=== PATIENT | male | born 2005 | race Caucasian/White ===

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

== ENCOUNTER 2025-01-31 13:07 | Inpatient (IN) | payer BC ==
[~2025-01-31] VITALS: Ht 177.8 cm; Wt 59.0 kg
[2025-01-31 13:15] VITALS: BP 132/82
[2025-01-31] MEDS ORDERED: OLANZapine ODT 5 MG Tab MM ONE (13:50)
[2025-01-31] MEDS ORDERED: Ibuprofen 400 MG Tab PO ONE (13:50)
[2025-01-31 13:51] LABS: Ethanol (Alcohol), Blood, Med <3 mg/dL; Salicylate <1.7 mg/dL (2.8-20.0)
[2025-01-31 13:57] LABS: Acetaminophen, Random <2.0 ug/mL (10.0-30.0); Alanine Aminotransfer (ALT/SGP 29 U/L (12-78); Albumin, Blood 4.7 g/dL (3.4-5.0); Albumin/Globulin Ratio 1.6 (0.8-1.8); Alk Phos 76 U/L (58-237); Anion Gap 15 mmol/L (3-11); Aspartate Aminotrans (AST/SGOT 42 U/L (12-37); Blood Urea Nitrogen 10 mg/dL (8-21); Bun/Creatinine Ratio 9.9 (12.0-20.0); CO2, Blood 20 mmol/L (21-32); Calcium, Blood 9.6 mg/dL (8.5-10.1); Chloride, Blood 105 mmol/L (98-108); Creatinine, Blood 1.01 mg/dL (0.60-1.20); Globulin, Blood 2.9 g/dL (2.2-4.0); Glomerular Filtration Rate 110 (60-); Glucose, Blood 108 mg/dL (70-99); Potassium, Blood 3.8 mmol/L (3.5-5.5); Sodium, Blood 136 mmol/L (136-145); Total Protein, Blood 7.6 g/dL (6.4-8.2)
[2025-01-31 14:16] LABS: BASOPHILS ABSOLUTE AUTO 0.04 K/mm3 (0.00-0.23); BASOPHILS PERCENT AUTO 1 % (0-2); EOSINOPHILS ABSOLUTE AUTO 0.17 K/mm3 (0.00-0.68); EOSINOPHILS PERCENT AUTO 3 % (0-6); Hematocrit 40.5 % (37.0-53.0); Hemoglobin 15.1 g/dL (13.5-17.5); IMMATURE GRAN ABSOLUTE AUTO 0.01 K/mm3 (0.00-0.10); IMMATURE GRAN PERCENT AUTO 0 % (0-1); LYMPHOCYTES PERCENT AUTO 26 % (21-46); MONOCYTES ABSOLUTE AUTO 0.59 K/mm3 (0.16-1.47); MONOCYTES PERCENT AUTO 9 % (4-13); Mean Corpuscular HGB Conc 37.3 g/dL (31.5-36.5); Mean Corpuscular Volume 83 fL (80-100); Mean Platelet Volume 8.5 fL (9.1-12.4); NEUTROPHILS ABSOLUTE AUTO 4.23 K/mm3 (1.96-9.15); NEUTROPHILS PERCENT AUTO 62 % (41-73); Platelet Count 276 K/mm3 (150-400); RDW Coefficient Variation 13.1 % (11.7-14.2); RDW Standard Deviation 39.3 fL (35.1-46.3); Red Blood Cell Count 4.87 M/mm3 (4.30-5.90); White Blood Cell Count 6.84 K/mm3 (4.00-11.30)
[2025-01-31] MEDS ORDERED: GUANFACINE HCL E2 MG PO (15:16)
[2025-01-31] MEDS ORDERED: CATAPRES0.1 MG PO (15:21)
[2025-01-31] MEDS ORDERED: RISP3 PO (15:22)
[2025-01-31] MEDS ORDERED: ESCI10 PO (15:22)
[2025-01-31 15:31] LABS: Source, Urine Clean Catch
[2025-01-31 15:55] LABS: Appearance, Urine Clear (Clear); Bilirubin, Urine Neg (Neg); Blood, Urine Neg (Neg); Color, Urine Yellow (P-Yellow); Glucose Qualitative, Urine Neg (Neg); Ketones, Urine 2+ (Neg); Leukocyte Esterase, Urine Neg (Neg); Nitrite, Urine Neg (Neg); Protein, Urine Neg (Neg); Urobilinogen, Urine NORM (Normal)
[2025-01-31 16:06] LABS: U Amphetamine Screen Not Detected; U Barbituate Screen Not Detected; U Benzodiazapine Screen DETECTED; U Buprenorphine Screen Not Detected; U Cannabinoids Screen DETECTED; U Cocaine Screen Not Detected; U Methadone Screen Not Detected; U Methamphetamine Screen Not Detected; U Opiates Screen Not Detected; U Oxycodone Screen Not Detected; U Phencyclidine Screen Not Detected
== END 2025-01-31 20:15 | DRG 885 ==
LOC: ER 13:07 → EOR 15:50
PROVIDERS: ADMIT Student in an Organized Health Care Education/Training Program
DX: F20.0 Paranoid schizophrenia (principal); F31.9 Bipolar disorder, unspecified; F90.9 Attention-deficit hyperactivity disorder, unspecified type; F42.9 Obsessive-compulsive disorder, unspecified; F12.10 Cannabis abuse, uncomplicated; F10.90 Alcohol use, unspecified, uncomplicated; F13.10 Sedative, hypnotic or anxiolytic abuse, uncomplicated; Z79.1 Long term (current) use of non-steroidal anti-inflammatories (NSAID); Z91.148 Patient's other noncompliance with medication regimen for other reason
CPT/HCPCS: 36415; 80053; 80320; 81003; 85025; 93005; 93010; 99285-25; A9270; G0378; G0480

== ENCOUNTER 2025-01-31 15:37 | Inpatient (IN) | payer BC ==
[~2025-01-31] VITALS: Ht 180.3 cm; Wt 62.4 kg
[~2025-01-31 15:37] MED LIST: CATAPRES0.1 MG PO; ESCI10 PO; GUANFACINE HCL E2 MG PO; RISP3 PO
[2025-01-31] MEDS ORDERED: Acetaminophen 325 MG TABLET PO PRN (17:45)
[2025-01-31] MEDS ORDERED: Polyethylene Glycol 3350 17 gm PO PRN (17:45)
[2025-01-31] MEDS ORDERED: LORazepam 2 MG/ML 1ML Injection IM PRN (17:50)
[2025-01-31] MEDS ORDERED: Calcium Carbonate 500 MG Tab Chew PO PRN (17:50)
[2025-01-31] MEDS ORDERED: Aluminum Hydroxide 320MG/5ML 473 ML PO PRN (17:50)
[2025-01-31] MEDS ORDERED: Ibuprofen 600 MG Tab PO PRN (17:50)
[2025-01-31] MEDS ORDERED: Ondansetron 4 MG SoluTab MM PRN (17:55)
[2025-01-31] MEDS ORDERED: LORazepam 1 MG Tab PO SCH (20:00)
[2025-01-31 20:51] VITALS: BP 128/87
[2025-01-31] MEDS ORDERED: RisperiDONE 1 MG Tab PO SCH (21:00)
[2025-01-31 21:25] VITALS: BP 128/87
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
--- NOTE | 2025-02-01 04:25 | NUR ---
SHIFT SUMMARY: SEE PREVIOUS NOTE FOR ADMISSION SUMMARY. PATIENT STATED BEFORE HE WENT TO BED THAT HE DID NOT WANT TO BE AWAKENED FOR ATIVAN AT MIDNIGHT AND 0400. RN ASKED THREE SEPARATE TIMES TO ASCERTAIN THAT WAS WHAT HE ACTUALLY WANTED TO HAPPEN. STAFF SPOKE HIS NAME IN A SOFT TONE OF VOICE INTO HIS ROOM AT MIDNIGHT AND 0400 BUT HE DID NOT AWAKEN, SO MEDICATION WAS CHARTED NOT GIVEN. PATIENT HAS BEEN RESTING IN BED WITH EYES CLOSED AND RESPIRATIONS CONFIRMED THE REMAINDER OF THIS SHIFT. HE HAS NO S/SX SUICIDAL IDEATION OR SELF HARM WHILE SLEEPING. CONTINUING TO MONITOR FOR SAFETY WITH Q15 MINUTE CHECKS.
[2025-02-01 08:43] VITALS: BP 137/91
[2025-02-01] MEDS ORDERED: Multivitamins 1 Tab PO SCH (09:00)
[2025-02-01] MEDS ORDERED: LORazepam 1 MG Tab PO SCH (14:00)
[2025-02-01] MEDS ORDERED: Paliperidone Palmitate 234 MG/1.5 ML SYR IM ONE (17:00)
[2025-02-01] MEDS ORDERED: Nicotine Polacrilex 2 MG Gum PO PRN (17:05)
--- NOTE | 2025-02-01 17:54 | NUR ---
SHIFT SUMMARY PT A/O X4; AND COOPERATIVE WITH CARE. HIS AFFECT IS CHEERFUL AND HE REFERS TO HIMSELF IN THE THIRD PERSON. HE SAYS THAT HE DOES NOT WISH TO BE ALIVE BUT DOES NOT HAVE A PLAN OR INTENT TO KILL HIMSELF. HE REPORTS HALLUCINATIONS BUT BELIEVES THEY MAY RESOLVE WITH MEDICATIONS. HE IS COMPLIANT WITH MEDICATIONS AND HAS BEEN ACTIVE ON THE MILEU. HOWEVER, AT TIMES PT HAS VERBALIZED INAPPROPRIATE THINGS OF THE SEXUAL NATURE AND HAD TO BE TOLD TO STOP BY MHA. PT RECEIVED HIS FIRST INVEGA INJECTION THIS SHIFT AND HAS BEEN RECEIVING SCHEDULED Q4 LORAZEPAM. HE IS MONITORED VIA Q15 ROUNDING FOR SAFETY AND WELLNESS.
[2025-02-01 20:42] VITALS: BP 129/80
--- NOTE | 2025-02-02 04:14 | NUR ---
SHIFT SUMMARY PATIENT UP IN SENSORY ROOM WITH HEADPHONES IN PLACE BEFORE AND AFTER SNACK. DENIES SI, HI, AVH. NO LONGER SPEAKING IN THIRD PERSON. MULTIPLE SCARRED CUTS AND WAGNER TO BOTH ARMS, CUTS TO ABD AND LEGS. PATIENT VERBALIZED NO URGE TO HARM SELF AND AGREES TO ASK FOR HELP IF URGES RETURN. COOPERATIVE WITH MEDICATIONS. AFTER BEING GIVEN EARPLUGS PATIENT APPEARS TO BE SLEEPING WELL WITH RESP EVEN AND UNLABORED. CONTINUE Q15MIN MONITORING
[2025-02-02 08:10] VITALS: BP 124/96
--- NOTE | 2025-02-02 08:57 | NUR ---
PT ATTEMPTING TO ISOLATE SELF IN SENSORY ROOM WITH BLANKETS AND HEADPHONES. DOES NOT WANT TO BE IN ROOM BUT ALSO DOES NOT WANT TO PARTICIPATE IN GROUP ACTIVITIES. EDUCATED ON NEED TO ATTEND GROUP SESSIONS TO MEET GOALS FOR DISCHARGE. HE WAS AGREEABLE TO THIS. CURRENTLY SPEAKING IN 3RD PERSON. DENIES SI/HI/AH/VH.
[2025-02-02] MEDS ORDERED: LORazepam 1 MG Tab PO SCH ×2 (14:00→18:00)
[2025-02-02 14:45] VITALS: BP 117/87
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
--- NOTE | 2025-02-02 17:31 | NUR ---
SHIFT SUMMARY: SEE PREVIOUS NOTE REGARDING PSEUDO SEIZURE TYPE BEHAVIORS. CURRENTLY CALM, COOPERATIVE. REQUESTED NICOTINE GUM AND WOULD LIKE TO HAVE PATCH APPLIED TOMORROW. WHEN ASKED WHAT FORM OF TOBACCO HE NORMALLY USES HE STATED "VAPORIZED." PT ATE MEAL WITHOUT ISSUE. CURRENTLY IN ROOM RELAXING.
[2025-02-02 20:30] VITALS: BP 106/61
[2025-02-02] MEDS ORDERED: Melatonin 3 MG Tab PO SCH (21:00)
--- NOTE | 2025-02-03 06:12 | NUR ---
SHIFT SUMMARY Pt is A&O, calm, cooperative, eye contact is inermitent. Pt mood is depressed, "because I'm here," affect is flat. Pt denies current SI, HI, hallucinations, and pain. Pt continues to refer to himself in the third person. Pt remained in his room this entire shift and had to be awakened for assessment, VS, and meds. Staff continues to monitor q15m for safety and wellness.
[2025-02-03 08:14] VITALS: BP 126/82
[2025-02-03 09:27] LABS: LDL/HDL RATIO 1.1
[2025-02-03 09:28] LABS: CHOL/HDL RATIO 2.6; Cholesterol 111 mg/dL (50-200); HDL Cholesterol 43 mg/dL (>39); Low Density Lipoprotein Chol 47 mg/dL (0-110); Triglycerides 104 mg/dL (30-140); Very Low Density Lipoprot Chol 20 mg/dL (6-28)
[2025-02-03] MEDS ORDERED: Nicotine 21 MG PATCH TOP ONE (11:30)
--- NOTE | 2025-02-03 14:10 | NUR ---
PRIOR TO ADMINISTERING 1400 ATIVAN, PT LOWERED SELF TO HANDS AND KNEES ON FLOOR STATING HE WANTED AN EKG BECAUSE HIS HEART WAS "GOING TO EXPLODE." RADIAL PULSE STRONG, REGULAR RHYTHM, RATE OF 80. REASSURED PATIENT THAT HIS HEART WAS FUNCTIONING APPROPRIATELY. PT THEN STOOD UP AND WALKED TO NURSE'S STATION TO TAKE MEDICATION. WALKED BACK TO ROOM WITHOUT DIFFICULTY. PT HAD REMOVED NICOTINE PATCH ON OWN - HAD HIM RETRIEVE IT OUT OF THE GARBAGE. HE STATES "IT WAS TOO MUCH." THIS RN OBSERVED PATCH AND DISCARDED IT PROPERLY.
--- NOTE | 2025-02-03 16:59 | NUR ---
SHIFT SUMMARY: PT MORE COOPERATIVE TODAY WITH REQUESTS. ABLE TO BE REDIRECTED EASILY AND FOLLOWS COMMANDS. CONTINUES TO EXPRESS FRUSTRATION WITH BEING HERE BUT ALSO STATES HE UNDERSTANDS WHY IT IS IMPORTANT. C/O FEELING SEDATED BY MEDICATIONS BUT AGREES TO KEEP TAKING THEM. HAD ON INSTANCE OF ROCKING BACK AND FORTH ON HANDS/KNEES ON FLOOR. EASILY REDIRECTED TO GET UP AND WALK (SEE PREVIOUS NOTE). ATTEMPTED TO EXERCISE IN SENSORY ROOM APPROXIMATELY 30 MINUTES PRIOR TO PARENTS ARRIVING. DISCUSSED WITH HIM THAT EXERCISING STARTED HIS PANIC ATTACK (PER HIS STATEMENT) YESTERDAY AND RECOMMENDED HE NOT DO THIS. HE AGREES AND TRANSITIONED TO YOGA/STRETCHING. WHEN PARENTS ARRIVED PT FLUCTUATED BETWEEN ANGER/IRRITABILITY WITH PARENTS AND TELLING THEM HE LOVED THEM AND HUGGING THEM. PARENTS REMAINED CALM AND SPOKE SOFTLY AND CALMLY TO PATIENT. PATIENT TENDED TO OVERTALK HIS PARENTS AND NOT ENGAGE IN LISTENING TO THEM.
[2025-02-03 19:30] VITALS: BP 114/74
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
[2025-02-04 08:19] VITALS: BP 127/89
[2025-02-04] MEDS ORDERED: Nicotine 21 MG PATCH TOP SCH ×2 (09:00)
[2025-02-04] MEDS ORDERED: Nicotine 14 MG PATCH TOP ONE (09:35)
--- NOTE | 2025-02-04 17:36 | NUR ---
SHIFT SUMMARY PT A/O X4 AND COOPERATIVE WITH PLAN OF CARE. HE DENIES SI, HI, OR HALLUCINATIONS. PT SOMETIMES EXHIBITS HAND FLAPPING, ROCKING, AND SHUDDERING. PT PARTICIPATED IN ALL GROUPS AND MEALS THIS SHIFT. HE HAD AN EPISODE OF ANXIETY AND CONTINUES TO RECEIVE Q4 ATIVAN. PT ALSO ENCOURAGED TO USE COPING SKILLS. PT TO RECEIVE SECOND INVEGA INJECTION TOMORROW AND POSSIBLY DISCHARGE HOME TOMORROW.
[2025-02-04] MEDS ORDERED: Nicotine Polacrilex 2 MG Gum PO PRN (19:15)
[2025-02-04 19:51] VITALS: BP 134/85
--- NOTE | 2025-02-05 04:11 | NUR ---
SHIFT SUMMARY PT IN MILIEU AT START OF SHIFT. HE DENIES ANY SI, THOUGHTS OF SELF HARM OR HALLUCINATIONS. PT STATED HE WAS A LITTLE ANXIOUS, BUT EXCITED TO BE GOING HOME. PT WAS NOT TALKING IN THE THIRD PERSON DURING ASSESSMENT, NO TICS OBSERVED. PT WAS COMPLIANT WITH MEDICATIONS, HAD EVENING SNACK AND WENT TO BED SHORTLY AFTER. HE HAS BEEN SLEEPING THROUGHOUT THE NIGHT, WITH RESPIRATIONS CONFIRMED. Q15 MINUTE CHECKS TO CONTINUE PER UNIT PROTOCOL/PT SAFETY.
[2025-02-05] MEDS ORDERED: Nicotine 14 MG PATCH TOP SCH (09:00)
[2025-02-05] MEDS ORDERED: Paliperidone Palmitate 156 MG/ML SYR IM SCH (09:00)
--- NOTE | 2025-02-05 09:43 | NUR ---
IMPORTANT DISCHARGE INFORMATION PATIENT TO BE PICKED UP TODAY BY MOTHER AT 3PM. PHARMACY: [facility] PATIENT HAS FOLLOW UP APPOINTMENTS: PCP FOLLOW UP/JAMIN ON 02/09/25 AT 8:40AM. AT [facility] FOLLOW UP APPONTMRNT: 02/12/25 AT 1:30PM WITH THERAPIST DULCE LOPEZ MEDICATION REVIEW/DISEASE PROCESS REVIEW ON 02/16/25 AT 12:00 WITH LORENA MONTESINOS.
[2025-02-05] MEDS ORDERED: MELA3 PO (12:21)
[2025-02-05] MEDS ORDERED: Ativan1 MG PO (12:21)
[2025-02-05] MEDS ORDERED: MULVITA PO (12:21)
[2025-02-05] MEDS ORDERED: NICOTINE GUM2 M1 PO (12:22)
--- NOTE | 2025-02-05 15:13 | NUR ---
DISCHARGE NOTE PT STATES UNDERSTANDING OF D/C HOME WITH PARENTS. MEDICATIONS CALLED IN TO [facility] IN [place]. PT WAS ALSO GIVEN A HAND PRESCRIPTION OF ATIVAN 1 MG TO TAKE TO PHARMACY. D/C FORM SIGNED. ALL D/C INSTRUCTIONS AND RX GIVEN TO YANET WHO GAVE PT'S MOTHER ALL FORMS AND D/C PACKET WITH RX. MOTHER BROUGHT CLOTHES FOR PT TO CHANGE INTO. PT DRESSED SELF AND AMBULATED OUT OF FACILITY AND TRANSPORTED WITH HIS MOTHER.
[2025-02-06] MEDS ORDERED: Paliperidone Palmitate 156 MG/ML SYR IM ONE (09:00)
== END 2025-02-05 15:02 | disposition home or self-care (01) | DRG 885 ==
LOC: BHU 15:37
PROVIDERS: ADMIT Student in an Organized Health Care Education/Training Program
DX: F20.0 Paranoid schizophrenia (principal); Z79.899 Other long term (current) drug therapy; F41.9 Anxiety disorder, unspecified
CPT/HCPCS: 36415; 80061; 83036; A9270; J2060

== ENCOUNTER 2025-02-07 13:54 | Emergency (ER) | payer BC ==
[~2025-02-07] VITALS: Ht 177.8 cm; Wt 79.4 kg
[~2025-02-07 13:54] MED LIST changes: +Ativan1 MG PO; +MELA3 PO; +MULVITA PO; +NICOTINE GUM2 M1 PO
[2025-02-07 14:01] VITALS: BP 131/83
[2025-02-07 15:05] LABS: Source, Urine Clean Catch
[2025-02-07 15:10] LABS: Appearance, Urine Clear (Clear); Bilirubin, Urine Neg (Neg); Blood, Urine Neg (Neg); Glucose Qualitative, Urine Neg (Neg); Ketones, Urine Neg (Neg); Leukocyte Esterase, Urine Neg (Neg); Nitrite, Urine Neg (Neg); Protein, Urine Neg (Neg); Specific Gravity, Urine 1.005 (1.003-1.022); Urobilinogen, Urine NORM (Normal)
[2025-02-07 15:19] LABS: Color, Urine Pale Yellow (P-Yellow)
[2025-02-07 15:21] LABS: U Amphetamine Screen Not Detected; U Barbituate Screen Not Detected; U Benzodiazapine Screen Not Detected; U Buprenorphine Screen Not Detected; U Cannabinoids Screen Not Detected; U Cocaine Screen Not Detected; U Methadone Screen Not Detected; U Methamphetamine Screen Not Detected; U Opiates Screen Not Detected; U Oxycodone Screen Not Detected; U Phencyclidine Screen Not Detected
[2025-02-07 15:38] LABS: BASOPHILS ABSOLUTE AUTO 0.04 K/mm3 (0.00-0.23); BASOPHILS PERCENT AUTO 1 % (0-2); EOSINOPHILS PERCENT AUTO 5 % (0-6); Hematocrit 39.1 % (37.0-53.0); Hemoglobin 13.9 g/dL (13.5-17.5); IMMATURE GRAN ABSOLUTE AUTO 0.01 K/mm3 (0.00-0.10); IMMATURE GRAN PERCENT AUTO 0 % (0-1); LYMPHOCYTES PERCENT AUTO 23 % (21-46); MONOCYTES ABSOLUTE AUTO 0.64 K/mm3 (0.16-1.47); MONOCYTES PERCENT AUTO 10 % (4-13); Mean Corpuscular HGB 31.3 pg (26.0-34.0); Mean Corpuscular HGB Conc 35.5 g/dL (31.5-36.5); Mean Corpuscular Volume 88 fL (80-100); Mean Platelet Volume 8.4 fL (9.1-12.4); NEUTROPHILS ABSOLUTE AUTO 4.12 K/mm3 (1.96-9.15); NEUTROPHILS PERCENT AUTO 62 % (41-73); Platelet Count 223 K/mm3 (150-400); RDW Coefficient Variation 13.4 % (11.7-14.2); Red Blood Cell Count 4.44 M/mm3 (4.30-5.90); White Blood Cell Count 6.61 K/mm3 (4.00-11.30)
[2025-02-07] MEDS ORDERED: PALI3TAB (15:57)
[2025-02-07 16:05] LABS: Ethanol (Alcohol), Blood, Med <3 mg/dL; Salicylate <1.7 mg/dL (2.8-20.0)
[2025-02-07 16:16] LABS: Acetaminophen, Random <2.0 ug/mL (10.0-30.0); Alanine Aminotransfer (ALT/SGP 23 U/L (12-78); Albumin, Blood 4.1 g/dL (3.4-5.0); Albumin/Globulin Ratio 1.4 (0.8-1.8); Alk Phos 67 U/L (58-237); Anion Gap 8 mmol/L (3-11); Aspartate Aminotrans (AST/SGOT 20 U/L (12-37); Bilirubin, Total 0.3 mg/dL (0.1-1.0); Blood Urea Nitrogen 9 mg/dL (8-21); Bun/Creatinine Ratio 11.9 (12.0-20.0); CO2, Blood 28 mmol/L (21-32); Calcium, Blood 8.9 mg/dL (8.5-10.1); Chloride, Blood 107 mmol/L (98-108); Creatinine, Blood 0.76 mg/dL (0.60-1.20); Globulin, Blood 2.9 g/dL (2.2-4.0); Glomerular Filtration Rate 133 (60-); Glucose, Blood 102 mg/dL (70-99); Potassium, Blood 3.9 mmol/L (3.5-5.5); Sodium, Blood 139 mmol/L (136-145)
[2025-02-07 16:23] LABS: Free Thyroxine 0.96 ng/dL (0.70-1.60)
[2025-02-07 16:25] LABS: Thyroid Stimulating Hormone 0.728 uIU/mL (0.360-4.800)
== END 2025-02-07 17:02 | disposition home or self-care (01) ==
LOC: ER 13:54
PROVIDERS: Emergency Medicine; Physician Assistant
DX: R00.2 Palpitations (principal); Z79.899 Other long term (current) drug therapy
CPT/HCPCS: 80053; 80320; 81003; 84439; 84443; 85025; 93005; 93010; 99285-25; G0480

== ENCOUNTER 2025-02-09 11:05 | Observation (INO) | payer BC ==
[~2025-02-09] VITALS: Ht 177.8 cm; Wt 63.5 kg
[~2025-02-09 11:05] MED LIST changes: +PALI3TAB
[2025-02-09 11:19] VITALS: BP 145/79
[2025-02-09] MEDS ORDERED: RisperiDONE 1 MG Tab PO ONE (11:25)
[2025-02-09 12:07] LABS: BASOPHILS ABSOLUTE AUTO 0.03 K/mm3 (0.00-0.23); BASOPHILS PERCENT AUTO 1 % (0-2); EOSINOPHILS ABSOLUTE AUTO 0.28 K/mm3 (0.00-0.68); EOSINOPHILS PERCENT AUTO 7 % (0-6); Hematocrit 40.2 % (37.0-53.0); Hemoglobin 14.6 g/dL (13.5-17.5); IMMATURE GRAN ABSOLUTE AUTO 0.01 K/mm3 (0.00-0.10); IMMATURE GRAN PERCENT AUTO 0 % (0-1); LYMPHOCYTES ABSOLUTE AUTO 1.22 K/mm3 (0.84-5.20); LYMPHOCYTES PERCENT AUTO 30 % (21-46); MONOCYTES ABSOLUTE AUTO 0.42 K/mm3 (0.16-1.47); MONOCYTES PERCENT AUTO 10 % (4-13); Mean Corpuscular HGB 31.3 pg (26.0-34.0); Mean Corpuscular HGB Conc 36.3 g/dL (31.5-36.5); Mean Corpuscular Volume 86 fL (80-100); Mean Platelet Volume 8.1 fL (9.1-12.4); NEUTROPHILS ABSOLUTE AUTO 2.08 K/mm3 (1.96-9.15); NEUTROPHILS PERCENT AUTO 52 % (41-73); Platelet Count 248 K/mm3 (150-400); RDW Coefficient Variation 13.4 % (11.7-14.2); RDW Standard Deviation 41.3 fL (35.1-46.3); Red Blood Cell Count 4.66 M/mm3 (4.30-5.90); White Blood Cell Count 4.04 K/mm3 (4.00-11.30)
[2025-02-09 12:31] LABS: Albumin, Blood 4.2 g/dL (3.4-5.0); Albumin/Globulin Ratio 1.3 (0.8-1.8); Bilirubin, Total 0.4 mg/dL (0.1-1.0); Bun/Creatinine Ratio 11.2 (12.0-20.0); Calcium, Blood 8.9 mg/dL (8.5-10.1); Creatinine, Blood 0.8 mg/dL (0.60-1.20); Globulin, Blood 3.3 g/dL (2.2-4.0); Potassium, Blood 3.7 mmol/L (3.5-5.5); Total Protein, Blood 7.5 g/dL (6.4-8.2)
[2025-02-09 14:00] LABS: U Amphetamine Screen Not Detected; U Barbituate Screen Not Detected; U Benzodiazapine Screen Not Detected; U Buprenorphine Screen Not Detected; U Cannabinoids Screen Not Detected; U Cocaine Screen Not Detected; U Methadone Screen Not Detected; U Methamphetamine Screen Not Detected; U Opiates Screen Not Detected; U Oxycodone Screen Not Detected; U Phencyclidine Screen Not Detected
[2025-02-10] MEDS ORDERED: INVEGA SUSTENNA IM (11:34)
== END 2025-02-09 15:52 | disposition other institution (70) ==
LOC: ER 11:05 → EOR 11:06
PROVIDERS: ADMIT Emergency Medicine
DX: F20.0 Paranoid schizophrenia (principal); R46.89 Other symptoms and signs involving appearance and behavior; Z88.0 Allergy status to penicillin; Z79.899 Other long term (current) drug therapy
CPT/HCPCS: 36415; 80053; 85025; 99284; A9270; G0378

== ENCOUNTER 2025-02-09 14:53 | Inpatient (IN) | payer BC ==
[~2025-02-09] VITALS: Ht 177.8 cm; Wt 63.5 kg
[2025-02-09] MEDS ORDERED: OLANZapine ODT 10 MG Tab MM PRN (15:35)
[2025-02-09] MEDS ORDERED: DiphenhydrAMINE HCl 50 MG Cap PO PRN (15:35)
[2025-02-09] MEDS ORDERED: LORazepam 2 MG/ML 1ML Injection IM PRN (15:35)
[2025-02-09] MEDS ORDERED: Haloperidol 5 MG Tab PO PRN (15:35)
[2025-02-09] MEDS ORDERED: Calcium Carbonate 500 MG Tab Chew PO PRN (15:35)
[2025-02-09] MEDS ORDERED: Haloperidol Lactate Inj. 5 MG/ML Injection IM PRN (15:35)
[2025-02-09] MEDS ORDERED: DiphenhydrAMINE HCl 50 MG/ML 1ML Vial IV PRN (15:35)
[2025-02-09] MEDS ORDERED: Acetaminophen 325 MG TABLET PO PRN (15:40)
[2025-02-09] MEDS ORDERED: Polyethylene Glycol 3350 17 gm PO PRN (15:40)
[2025-02-09] MEDS ORDERED: Ibuprofen 600 MG Tab PO PRN (15:40)
[2025-02-09] MEDS ORDERED: LORazepam 2 MG Tab PO PRN (15:40)
[2025-02-09] MEDS ORDERED: Aluminum Hydroxide 320MG/5ML 473 ML PO PRN (15:40)
[2025-02-09] MEDS ORDERED: HydrOXYzine Pamoate 50 MG Cap PO PRN (15:40)
[2025-02-09] MEDS ORDERED: TraZODone HCl 50 MG Tab PO PRN (15:45)
[2025-02-09] MEDS ORDERED: Melatonin 3 MG Tab PO PRN (15:45)
[2025-02-09] MEDS ORDERED: Ondansetron 4 MG SoluTab MM PRN (15:50)
[2025-02-09 15:56] VITALS: BP 133/80
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
[2025-02-09 20:00] VITALS: BP 116/83
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
[2025-02-10 08:14] VITALS: BP 126/77
[2025-02-10] MEDS ORDERED: Multivitamins 1 Tab PO SCH (09:00)
[2025-02-10] MEDS ORDERED: INVEGA SUSTENNA IM (11:34)
[2025-02-10] MEDS ORDERED: Paliperidone Palmitate 156 MG/ML SYR IM SCH (11:35)
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
[2025-02-10 20:51] VITALS: BP 92/45
[2025-02-10 22:23] VITALS: BP 92/45
--- NOTE | 2025-02-11 04:32 | NUR ---
SHIFT SUMMARY PATIENT SLEEPING THROUGH SNACK AND T/O NIGHT (MEDICATED FOR ANXIETY AND OUT OF CONTROL BEHAVIOR AT SHIFT CHANGE). OPENING EYES TO VERBAL AND TACTILE STIMULI, NOT ANSWERING QUESTIONS, BUT FOLLOWING SIMPLE DIRECTIONS. REPOSITIONING SELF IN BED T/O NIGHT. RESP EVEN AND UNLABORED. CONTINUE TO MONITOR Q15MIN
[2025-02-11 08:04] VITALS: BP 130/79
--- NOTE | 2025-02-11 13:57 | NUR ---
SHIFT SUMMARY: PT REFERS TO HIMSELF IN THE THIRD PERSON, "HE IS HAVING SUICIDAL THOUGHTS BECAUSE HE IS IN THIS PLACE BUT HE WILL NOT HARM HIMSELF." HIS SPEACH IS PRESSURED. PT DENIED HI, AVH AND PHYSICAL PAIN. PT ENDORSED ANXIETY DUE TO BEING IN [facility]. WHEN ASKED AOBUT HIS MOOD HE EXPRESSED ANGER THAT HIS HERE BUT IF HE WASN'T, "HE WOULD BE IN A GOOD MOOD." HE HAD LENGTHY RAMBLINGS ALL IN THE THIRD PERSON. PT'S AFFECT WAS FLAT. HE ATTENDED ONE GROUP THIS MORNING AND IS NOW IN HIS ROOM.
[2025-02-11 14:30] LABS: Albumin, Blood 3.9 g/dL (3.4-5.0); Albumin/Globulin Ratio 1.4 (0.8-1.8); Bilirubin, Direct 0.1 mg/dL (0.0-0.3); Bilirubin, Indirect 0.4 mg/dL (0.1-0.7); Bilirubin, Total 0.5 mg/dL (0.1-1.0); Globulin, Blood 2.8 g/dL (2.2-4.0); Total Protein, Blood 6.7 g/dL (6.4-8.2)
[2025-02-11 19:26] VITALS: BP 124/83
[2025-02-11] MEDS ORDERED: Divalproex Sodium 500 MG TABCR PO SCH (21:00)
--- NOTE | 2025-02-12 04:07 | NUR ---
SHIFT SUMMARY PATIENT HAVING FLIGHT OF IDEAS AND VERY PRESSURED SPEECH. VERY DIFFICULT TO FOLLOW CONVERSATION. BY 193 PATIENT CONTINUED TO ESCALATE AND MORE DIFFICULT TO REDIRECT. PATIENT COOPERATIVE WITH PO MEDICATIONS. BY 1999 PATIENT MORE RELAXED BUT CONTINUED TO HAVE TANGENTIAL SPEECH, CONTINUES TO SPEAK IN THIRD PERSON AND MAINLY FOCUSING ON HOW WRONG HIS DAD IS AND HOW WE ARE ALL USING "TELEPATHY" TO COMMUNICATE. HAVING ROCKING MOVEMENTS, BUT ABLE TO FOCUS ON PUTTING TOGETHER A PUZZLE. AFTER SNACK PATIENT ABLE TO VERBALIZE THAT HE WAS FEELING BETTER AND WAS THANKFUL FOR THE MEDICATION HE WAS GIVEN, "GENE NEEDS TO CONTINUE TO BE AGREEABLE TO TAKE THAT" " THOSE MEDICATIONS HELPED US". PATIENT TO BED SHORTLY AFTER SNACK PATIENT APPEARS TO BE SLEEPING WELL T/O NIGHT WITH RESP EVEN AND UNLABORED. CONTINUE TO MONITOR Q15MIN.
[2025-02-12] MEDS ORDERED: RisperiDONE 1 MG Tab PO SCH ×2 (09:00)
--- NOTE | 2025-02-12 17:46 | NUR ---
SHIFT NOTE PT FOUND WITH PRESSURED FAST TANGENTIAL SPEECH THIS AM. HE WAS COMPLIANT WITH MEDICATIONS INCLUDING THE NEWLY STARTED RISPERIDOL. PT CONTINUED TO ELEVATE AND THEN WAS REQUESTING PRN AND AGREED TO PRN ZYPREXA. HE WAS TAKEN INTO THE SENSORY ROOM WITH JAXON CHRISTOPHER AND HE TOOK PRN ZYPREXA. PT THEN WENT TO HIS ROOM. HE APPEARED TO BE LESS ELEVATED AFTER THE ZYPREXA. PT SPOKE WITH LESS VOLUME, CONTINUOUS, AND WHISPERING, REDIRECTABLE, AND COMPLIANT WITH STAFF. AFTER HIS VISIT WITH HIS PT STATED TO HAVE FAST, PRESSURED, LOUD, CONTINUOUS SPEAKING AND WAS NOT WANTING TO LET MOTHER LEAVE THE UNIT. AFTER EFFORTS HE WAS DIRECTED BY STAFF TO SIT IN A HALLWAY CHAIR AND PT DID SO UNTIL MOTHER LEFT. PT THEN WET TO HIS ROOM ON HIS OWN. PT DENIES ANY HI/SI/AVTH, BUT HE INTERMITTENTLY SPEAKS IN THIRD PERSON AND SPEAKS LIKE: "HE IS TELLING US THIS MEDICATION IS FOR GOOD" IF HE IS HEARING SOMEONE. PT CONINUES TO SPEAK IN CONVERSATIONS WHEN HE IS THE ONLY ONE PRESENT IN THE ROOM.
[2025-02-12 19:25] VITALS: BP 121/72
--- NOTE | 2025-02-13 06:19 | NUR ---
SHIFT SUMMARY PT DENIES SI, HI, AVTH. AT START OF SHIFT PT HAD A FLIGHT OF IDEAS; PT IS REDIRECTIBLE, BUT IMMEDIETELY RESUMES FREQUENT SWITCHING OF TOPIC. PT CONTINUES TO SPEAK IN THIRD PERSON. ZYPREXA GIVEN W/ NIGHT TIME MEDS, BUT PT BEHAVIOR REMAINED UNCHANGED; PT WAS ABLE TO PLAY JEANIE W/ THIS RN AND ALLEN. PT ALSO SLEPT/RESTED QUIETLY T/O THE WHOLE NIGHT. NO OTHER ACUTE EVENTS AT THIS TIME.
[2025-02-13 08:10] VITALS: BP 132/87
[2025-02-13] MEDS ORDERED: LORazepam 1 MG Tab PO SCH (14:00)
--- NOTE | 2025-02-13 14:01 | NUR ---
PT WITH PRESSURED SPEECH INTERSPERSED WITH GIGGLING/LAUGHING. INCREASING ENERGY. STATES "THOUSAND AND THOUSANDS OF PEOPLE COMING TO THE FACILITY. DON'T TAKE THE MEDICINE, BUT HE WILL TAKE THE MEDICINE." APPEARS TO BE MANIC AT THIS TIME. OVERTALKS STAFF AND PEERS.
--- NOTE | 2025-02-13 16:52 | NUR ---
SHIFT SUMMARY: PATIENT HAS PARTICIPATED IN GROUPS TODAY BUT CONTINUES TO EXHIBIT MANIC BEHAVIORS. TENDS TO BE MUCH MORE CONTROLLED WITH MALE STAFF THAN WITH FEMALE. NO VISITORS OR PHONE CALLS TODAY OF NOW. CONTINUES TO REFER TO SELF IN THIRD PERSON. CONTINUE EVERY 15 MINUTE SAFETY CHECKS.
--- NOTE | 2025-02-13 18:34 | NUR ---
PT STATES HE IS EATING BUGS. HAD SOMETHING IN MOUTH BUT UNABLE TO TELL WHAT PER ISAIAH GALLAGHER. THIS RN CHECKED ON PATIENT IN ROOM - HE WAS IN BATHROOM TALKING TO SELF ABOUT EATING BUGS AND THINKING IT'S FUNNY. 2 DIFFERENT VOICES AND INFLECTIONS BEING USED IN HIS TALKING/CONVERSATION. FELLOW PATIENT REPORTS HE DID ENTRY LEVEL WEB DEVELOPER A BUG AND EAT IT IN THE PATIO AREA. [facility] AND WAS OBSERVED IN [place] BENDING OVER TO PICK SOMETHING UP. THIS RN APPROACHED PATIENT AND ASKED TO SEE WHAT WAS IN HIS HANDS - HE SHOWED HANDS AND NOTHING PRESENT. ALL PTS LEFT PATIO AREA - DOORS TO OUTSIDE CLOSED AND LOCKED. PT STILL HAVING CONTINUOUS STREAMS OF CONVERSATION WITH SELF. WALKING IN HALLS AND IN AND OUT OF BEDROOM.
--- NOTE | 2025-02-13 18:39 | NUR ---
ISAIAH MENDEZ ALSO REPORTED PATIENT WAS SEEN CRYING PRIOR TO BUG EATING EPISODE AND WHEN SHE ASKED HIM WHAT WAS THE MATTER HE SPOKE IN A [place] ACCENT AND EXPRESSED FEAR FOR "[place] PEOPLE AND THAT THEY WERE ALL STARVING AND THAT'S WHY THEY ARE GOING TO ."
[2025-02-13] MEDS ORDERED: LamoTRIgine 25 MG Tab PO SCH (21:00)
[2025-02-13] MEDS ORDERED: RisperiDONE 1 MG Tab PO SCH (21:00)
[2025-02-13 22:07] VITALS: BP 121/72
--- NOTE | 2025-02-14 06:02 | NUR ---
SHIFT SUMMARY Pt is A&O, calm, cooperative, eye contact is intermittent. Pt describes his mood as "anxious," affect is constricted. Pt denies current SI, HI, hallucinations, and pain. Pt is hyperverbal and tangential in speech. Pt stated that he is frustrated about being here and thinks that he doesn't need to be here. Pt participated in milieu activities this evening, watching TV and playing cards with peers. Staff continues to monitor q15m for safety and wellness.
[2025-02-14 10:12] VITALS: BP 118/83
--- NOTE | 2025-02-14 17:01 | NUR ---
SHIFT SUMMARY PT A/O AND COOPERATIVE WITH CARE. HE DENIES SI, HI, OR HALLUCINATIONS. HE NEEDS PERSUASION AND REMINDING TO TAKE MEDICATIONS BECAUSE AT TIMES HE BELIEVES THAT HIS MEDICATIONS ARE "POISON". SPEECH IS PRESSURED, TANGENTIAL, AND FAST. PT DOES INTERACT WITH HIS PEERS AND HAS BEEN IN THE DAY ROOM FOR THE MAJORITY OF THE SHIFT.
[2025-02-14 19:43] VITALS: BP 131/83
[2025-02-14] MEDS ORDERED: RisperiDONE 1 MG Tab PO SCH (21:00)
--- NOTE | 2025-02-15 06:42 | NUR ---
SHIFT SUMMARY Pt is A&O, calm, cooperative, eye contact is good. Pt says his mood is "alright, but anxious," affect is constricted. Pt denies current SI, HI, hallucinations, and pain. Pt is hyperverbal, pressured, and tangential. Pt participated in milieu activities this evening, watchint TV and listening to music.
[2025-02-15 12:15] VITALS: BP 129/78
[2025-02-15] MEDS ORDERED: Nicotine Polacrilex 2 MG Gum PO PRN (13:55)
--- NOTE | 2025-02-15 17:49 | NUR ---
SHIFT SUMMARY PT HAS BEEN UP AND IN THE MILIEU ALL DAY, ENGAGED IN MEALS, SNACKS AND ACIVITIES, APPROPRIATE AND COOPERATIVE. HE STATES LOOKING FORWARD TO GOING HOME TOMORROW ALTHOUGH THERE IS NO PLANNED DC AT THIS TIME. HIS HOLD WILL BE UP TOMORROW AT 1600. PT DENIES SI/HI/AVH, CONTINUES TO SPEAK IN 3RD PERSON, HE DID SPEND A LOT OF TIME ON THE PATIO LISTENING TO MUSIC. HE HAS CONTINUED TO RECEIVE Q15 MIN VISUAL SAFETY CHECKS
[2025-02-15 19:51] VITALS: BP 125/70
--- NOTE | 2025-02-16 05:15 | NUR ---
SHIFT SUMMARY Pt is A&O, calm, cooperative, eye contact is appropriate. Pt described his mood as "a little down but still up." affect is full range. Pt denies SI, HI, hallucinations and pain. Pt was hyperverbal, tangential, displaying flight of ideas. He talked about how everybody is telepathic. Pt said he was thinking about "discharging tomorrow." Staff continues to monitor q15m for safety and wellness.
[2025-02-16 08:13] VITALS: BP 133/80
[2025-02-16] MEDS ORDERED: HYDPAM50 PO (11:04)
[2025-02-16] MEDS ORDERED: LAMO25 PO (11:04)
--- NOTE | 2025-02-16 11:11 | NUR ---
NURSE NOTE NOTIFIED PT'S MOTHER TO INFORM OF D/C TODAY. SHE WILL BE HERE TO TRANSPORT GENE TO GET HIS MEDICATIONS AT [facility] AND TAKE HIM HOME HE WILL BE STAYING WITH THEM. PT STATES VERBALLY OK FOR THIS RN TO MAKE ARRANGEMENTS WITH HIS MOTHER.
--- NOTE | 2025-02-16 15:54 | NUR ---
NURSE NOTE PT FOUND IN HIS ROOM BY ISAIAH, TEARFUL. PT WAS JUST PRIOR SEEN IN THE [place] AND HAPPY ABOUT BEING D/C'D HOME TODAY. JAXON CHRISTOPHER MEDICATED PT WITH VISTARIL FOR INCREASED ANXIETY. PT WAS CRYING OVER THE CLIMATE CHANGE. HE WAS COOPERTIVE WITH MEDICATION ADMINISTRATION. PT BACK TO HIS ROOM.
--- NOTE | 2025-02-16 17:02 | NUR ---
DISCHARGE NOTE: PT MOTHER ARRIVED FOR RIDE HOME. PT EDUCATED ON DISCHARGE INSTRUCTIONS AND RX. PT STATED CLEAR UNDERSTANDING AND DENIED QUESTIONS. PT BELONGINGS RETURNED BY DULCE COLON. PT AMBULATED OUT OF THE UNIT WITH DISCHARGE INSTRUCTIONS AND BELONGINGS IN HAND.
[2025-03-07] MEDS ORDERED: Paliperidone Palmitate 156 MG/ML SYR IM SCH (09:00)
== END 2025-02-16 17:03 | disposition home or self-care (01) | DRG 885 ==
LOC: BHU 14:53
PROVIDERS: ADMIT Psychiatry & Neurology Psychiatry
DX: F20.0 Paranoid schizophrenia (principal); F84.0 Autistic disorder; Z88.0 Allergy status to penicillin; Z79.899 Other long term (current) drug therapy; Z79.1 Long term (current) use of non-steroidal anti-inflammatories (NSAID)
CPT/HCPCS: 36415; 80076; A9270; J1200; J1630; J2060

== ENCOUNTER 2025-07-18 20:30 | Observation (INO) | payer OTHER, BC ==
[~2025-07-18] VITALS: Ht 177.8 cm; Wt 61.2 kg
[~2025-07-18 20:30] MED LIST changes: +HYDPAM50 PO; +INVEGA SUSTENNA IM; +LAMO25 PO
[2025-07-18] MEDS ORDERED: Ziprasidone Mesylate 20 MG / Vial IM ONE (20:40)
[2025-07-18 20:45] LABS: BASOPHILS ABSOLUTE AUTO 0.04 K/mm3 (0.00-0.23); BASOPHILS PERCENT AUTO 0 % (0-2); EOSINOPHILS ABSOLUTE AUTO 0.08 K/mm3 (0.00-0.68); EOSINOPHILS PERCENT AUTO 1 % (0-6); Hematocrit 40.5 % (37.0-53.0); Hemoglobin 15.2 g/dL (13.5-17.5); IMMATURE GRAN ABSOLUTE AUTO 0.06 K/mm3 (0.00-0.10); IMMATURE GRAN PERCENT AUTO 1 % (0-1); LYMPHOCYTES ABSOLUTE AUTO 0.96 K/mm3 (0.84-5.20); LYMPHOCYTES PERCENT AUTO 7 % (21-46); MONOCYTES ABSOLUTE AUTO 0.82 K/mm3 (0.16-1.47); MONOCYTES PERCENT AUTO 6 % (4-13); Mean Corpuscular HGB Conc 37.5 g/dL (31.5-36.5); Mean Corpuscular Volume 85 fL (80-100); NEUTROPHILS ABSOLUTE AUTO 10.94 K/mm3 (1.96-9.15); NEUTROPHILS PERCENT AUTO 85 % (41-73); NRBC ABSOLUTE 0.00 K/mm3 (0.00-0.02); NRBC Auto 0.0 /100 WBC (0.0-0.2); Platelet Count 259 K/mm3 (150-400); RDW Coefficient Variation 12.0 % (11.7-14.2); RDW Standard Deviation 37.0 fL (35.1-46.3)
[2025-07-18 20:59] LABS: Source, Urine Clean Catch
[2025-07-18 21:00] LABS: Prothrombin Time Results 10.9 Sec (9.7-11.5)
[2025-07-18 21:03] LABS: Alanine Aminotransfer (ALT/SGP 21 U/L (12-78); Albumin, Blood 4.3 g/dL (3.4-5.0); Albumin/Globulin Ratio 1.2 (0.8-1.8); Anion Gap 9 mmol/L (3-11); Aspartate Aminotrans (AST/SGOT 22 U/L (12-37); Bilirubin, Total 0.7 mg/dL (0.1-1.0); Blood Urea Nitrogen 16 mg/dL (8-24); CO2, Blood 26 mmol/L (21-32); Calcium, Blood 9.4 mg/dL (8.5-10.1); Chloride, Blood 106 mmol/L (98-108); Creatinine, Blood 0.94 mg/dL (0.60-1.20); Ethanol (Alcohol), Blood, Med <3 mg/dL; Globulin, Blood 3.5 g/dL (2.2-4.0); Glucose, Blood 160 mg/dL (70-99); Potassium, Blood 3.6 mmol/L (3.5-5.5); Sodium, Blood 137 mmol/L (136-145); Total Protein, Blood 7.8 g/dL (6.4-8.2)
[2025-07-18 21:03] LABS: Bilirubin, Urine Neg (Neg); Color, Urine Yellow (P-Yellow); Glucose Qualitative, Urine Neg (Neg); Ketones, Urine Neg (Neg); Leukocyte Esterase, Urine Neg (Neg); Protein, Urine 3+ (Neg); Specific Gravity, Urine 1.015 (1.003-1.022); Urobilinogen, Urine 1+ (Normal)
[2025-07-18 21:10] LABS: Red Blood Cells, Urine 0-2 /hpf (0-2); White Blood Cells, Urine 0-2 /hpf (0-5)
[2025-07-18 21:33] LABS: U Amphetamine Screen Not Detected; U Barbituate Screen Not Detected; U Benzodiazapine Screen Not Detected; U Buprenorphine Screen Not Detected; U Cannabinoids Screen DETECTED; U Cocaine Screen Not Detected; U Methadone Screen Not Detected; U Methamphetamine Screen Not Detected; U Opiates Screen DETECTED; U Oxycodone Screen Not Detected; U Phencyclidine Screen Not Detected
[2025-07-19] MEDS ORDERED: NS 1,000 ML IV SCH (02:50)
[2025-07-19 08:45] VITALS: BP 114/65
[2025-07-19] MEDS ORDERED: Ziprasidone Mesylate 20 MG / Vial IM ONE (10:30)
[2025-07-19] MEDS ORDERED: Ziprasidone Mesylate 20 MG / Vial IM PRN (10:35)
== END 2025-07-20 17:08 ==
LOC: ER 20:30 → EOR 20:31 → ER 07-19 02:53 → EOR 07-20 17:08
PROVIDERS: Student in an Organized Health Care Education/Training Program; ADMIT Emergency Medicine
DX: F20.0 Paranoid schizophrenia (principal); R45.851 Suicidal ideations; S00.83XA Contusion of other part of head, initial encounter; S00.81XA Abrasion of other part of head, initial encounter; V09.9XXA Pedestrian injured in unspecified transport accident, initial encounter; F42.9 Obsessive-compulsive disorder, unspecified; F31.9 Bipolar disorder, unspecified; Z88.0 Allergy status to penicillin
CPT/HCPCS: 70450; 71260; 72125; 74177; 80053; 80320; 81001; 83690; 85025; 85610; 86592; 93005; 93010; 96372; 99285-25; A9270; G0378; J3486; J7030; L0160; Q9967